=== PATIENT | female | born 1975 | race Asian ===

== ENCOUNTER 2022-04-12 01:28 | Inpatient (IN) | payer BC ==
[2022-04-12] VITALS (7 sets, daily range): BP systolic 108–136
[~2022-04-12] VITALS: Ht 154.9 cm; Wt 61.2 kg
[~2022-04-12 01:28] MED LIST: LOT5 PO; METO-540
--- NOTE | 2022-04-12 01:30 | NUR ---
PER PATIENT, SINCE 43 PATIENT HAS HAD CHEST TIGHTNESS AND SQUEEZING SENSATION THAT RADIATES TO LEFT NECK AND SHOULDER.
--- NOTE | 2022-04-12 01:36 | NUR ---
PATIENT BROUGHT TO BED SIX AND PLACED IN GOWN FOR EVAL. EKG BEING PERFORMED AT THIS TIME.
[2022-04-12] MEDS ORDERED: ASPIRIN 81 MG TAB.CHEW PO ONE (01:45)
--- NOTE | 2022-04-12 01:48 | NUR ---
Dr. Rojas at bedside with patient for evaluation.
--- NOTE | 2022-04-12 01:51 | NUR ---
Lab at bedside for blood draw.
--- NOTE | 2022-04-12 01:56 | NUR ---
X-ray being done at bedside.
[2022-04-12] MEDS ORDERED: NITROGLYCERIN 0.4 MG TAB.SUBL SL ONE (02:00)
[2022-04-12 02:10] LABS: HEMOGLOBIN 14.4 g/dL (12.0-16.0)
[2022-04-12 02:18] LABS: ANION GAP 3 (5-15); CALCIUM 9.3 mg/dL (8.4-11.0); CHLORIDE 97 mmol/L (98-107); CREATININE 0.94 mg/dL (0.55-1.30); GLUCOSE 109 mg/dL (70-99); POTASSIUM 3.2 mmol/L (3.5-5.1); UREA NITROGEN, BLOOD 13 mg/dL (8-21)
[2022-04-12 02:25] LABS: ALANINE AMINOTRANSFERASE 15 U/L (12-78); ALBUMIN 3.7 g/dL (3.4-4.8); ASPARTATE AMINOTRANSFERASE 12 U/L (10-37); TOTAL BILIRUBIN 0.4 mg/dL (0.0-1.0)
[2022-04-12 02:28] LABS: BASOPHILS # (AUTO) 0.1 K/uL (0.0-0.2); BASOPHILS % (AUTO) 0.8 % (0.0-2.0); EOSINOPHILS # (AUTO) 0.2 K/uL (0.0-0.4); EOSINOPHILS % (AUTO) 1.9 % (0.0-4.0); HEMATOCRIT 40.9 % (36-48); LYMPHOCYTES % (AUTO) 19.6 % (20.5-51.5); MEAN CORPUSCULAR HEMOGLOBIN 32 pg (27-31); MEAN CORPUSCULAR HGB CONC 35 % (32-36); MEAN CORPUSCULAR VOLUME 90 fL (79.0-98.0); MONOCYTES # (AUTO) 0.8 K/uL (0.0-1.0); MONOCYTES % (AUTO) 8.1 % (1.7-9.3); NEUTROPHILS % (AUTO) 69.6 % (40.0-70.0); PLATELET COUNT (AUTO) 216 K/uL (130-430); RED BLOOD CELL COUNT(AUTO) 4.53 MIL/uL (4.2-6.2); RED CELL DISTRIBUTION WIDTH 12.8 % (9.0-15.0); WHITE BLOOD COUNT (AUTO) 10.1 K/uL (4.8-10.8)
--- NOTE | 2022-04-12 02:29 | NUR ---
# 18 gauge angiocath placed to RIGHT ANETCUBITAL. Use of asceptic technique. Opsite placed over site. Blood return noted. Flushed with 10 cc of normal saline. No evidence of infiltration noted. Patient tolerated well.
--- NOTE | 2022-04-12 02:30 | NUR ---
PT IS A 46 Y.O. FEMALE, W/ DAUGHTER AT BEDSIDE. AA&OX4.AFEBRILE. NITRO SL ADMINISTERED ORDERED X 3 5 MINS APART. INITIAL CHESTTIGHTNESS PAIN LEVEL=7/10 DOWN TO 4/10 AFTER 3RD DOSE. INSTRUCTED PT TO STAY IN BED & TO NOT GET UP. VSS. LATEST VS: 118/57, 80, 95% ON RA, 20. SAFE & HAZARD FREE ENVIRONMENT PROVIDED.WILL CON'T TO MONITOR.
[2022-04-12 02:35] LABS: GFR AFRICAN AMERICAN 82 mL/min (>90)
[2022-04-12] MEDS ORDERED: ONDANSETRON 4 MG ODT TAB ONE (03:26)
[2022-04-12] MEDS ORDERED: ONDANSETRON 4 MG ODT TAB PO ONE (03:30)
--- NOTE | 2022-04-12 04:29 | NUR ---
COVID SWAB COLLECTED & SENT TO LAB.
[2022-04-12] MEDS ORDERED: IRBE150T48 PO (04:35)
[2022-04-12] MEDS ORDERED: LAMO200T2 PO (04:35)
--- NOTE | 2022-04-12 04:37 | NUR ---
Admit bed requested Patient will be admitted to care of Dr. Mart. Admitted to TELEMETRY unit. Diagnosis CHEST PAIN Inpatient (Yes or No) YES Observation (Yes or No) NO Orientation concerns or request close to nursing station (Yes or No) YES Covid Status PENDING On vent or bipap NO Isolation requirements NO Needs a sitter NO From Home (Yes or if No enter name of facility) YES Requires Dialysis (Yes or No) NO Med Rec Completed (Yes of No) YES
--- NOTE | 2022-04-12 04:42 | NUR ---
ADMITTING ORDERS RECEIVED FR DR. SINCLAIR VIA TELEPHONE NOTED & CARRIED OUT.
--- NOTE | 2022-04-12 04:42 | NUR ---
MED RECON COMPLETED, BELONGINGS LIST COMPLETED.
[2022-04-12] MEDS ORDERED: fentaNYL CITRATE/PF 100 MCG/2 ML AMP IVP ONE (04:45)
--- NOTE | 2022-04-12 05:48 | NUR ---
Patient will be admitted to care of DR. SINCLAIR. Admitted to TELEMETRY unit. Will go to room 117B. Belongings list completed. Complete and up to date summary report printed. SBAR report given to HIRA PÉREZ at bedside with opportunity for questions. PT IS AA&OX4. AFEBRILE. NAD, CHEST PAIN 2/10 TOLERABLE. AMBULATORY W/ STEADY GAIT. IV ON RAC 18G INTACT W/ NO S/S OF INFILTRATION, NO PHLEBITIS.
[2022-04-12] MEDS: MORPHINE 2 MG/ML INJ. SYRINGE IVP PRN ×3 (06:46→15:10)
--- NOTE | 2022-04-12 06:54 | NUR ---
NEW ADMISSION FROM ED, ARRIVED AT 0530,C/O CHEST PAIN THAT RADIATED TO JAW AND COLLAR BONE,MEDICATED ORDERED FOR PAIN.ADMISSION ASSESSMENT COMPLTED, V/S STABLE, BP118/86,HR64,RR16,TEMP 96.7.O2SAT 97%ON RA.PATIENT IS AAO X4. AMBULATES AND GAITE IS STEADY
--- NOTE | 2022-04-12 07:30 | NUR ---
am notes received pt in bed . a/x4. denies any chest pain or sob. res even and unlabored. vitals stable. iv site r ac #18 patent .flushed well. .safety precautions in place. call light within reach. poc discussed with pt. verbalized understanding. will continue to monitor
[2022-04-12] MEDS ORDERED: MORPHINE 2 MG/ML INJ. SYRINGE IVP PRN ×2 (08:30)
[2022-04-12] MEDS ORDERED: ACETAMINOPHEN 325 MG TABLET PO PRN ×2 (08:30→13:30)
[2022-04-12] MEDS ORDERED: NALOXONE HCL 0.4 MG/ML AMP (NARCAN) IVP PRN ×2 (08:30)
[2022-04-12] MEDS ORDERED: MAGNESIUM SULFATE 50 ML IV PRN (08:30)
[2022-04-12] MEDS ORDERED: ONDANSETRON HCL 4 MG/2 ML VIAL IVP PRN (08:30)
[2022-04-12] MEDS ORDERED: ZOLPIDEM TARTRATE 5 MG TABLET PO PRN (08:30)
[2022-04-12] MEDS ORDERED: LORazepam 2 MG/ML VIAL IVP PRN (08:30)
[2022-04-12] MEDS ORDERED: MUPIROCIN 2% TOPICAL OINTMENT 22 GM NS PRN (08:30)
[2022-04-12] MEDS ORDERED: POTASSIUM CHLORIDE 20 MEQ TAB.PRT.SR PO PRN (08:30)
[2022-04-12] MEDS ORDERED: DOCUSATE SODIUM 100 MG CAPSULE PO PRN (08:30)
[2022-04-12] MEDS ORDERED: LamoTRIgine 100 MG TABLET PO SCH (09:00)
[2022-04-12] MEDS ORDERED: LOSARTAN POTASSIUM 50 MG TABLET (COZAAR) PO SCH (09:00)
--- NOTE | 2022-04-12 11:10 | NUR ---
C/O OF CHEST PAIN/TIGHTNESS 02/04. BP 129/80 . HR 77,100% ON RA. PT C/O OF MILD SOB. CALLED DR SLAUGHTER AND NOTIFIED. NEW ORDER RECEIVED FOR XANAX . PER DR SLAUGHTER PT IS CLEARED FROM CARDIAC STANDPOINT.
[2022-04-12] MEDS ORDERED: ALPRAZolam 0.25 MG TABLET PO ONE (11:15)
--- NOTE | 2022-04-12 11:49 | NUR ---
pt stated her chest pain is less 5/10. refused for morphine at this time xanax po 0.25 given as per order. will conitnue to monitor
[2022-04-12 12:32] LABS: BILIRUBIN,URINE NEGATIVE (NEGATIVE); BLOOD, URINE 1+ (NEGATIVE); COLOR,URINE YELLOW (YELLOW); GLUCOSE,URINE NEGATIVE (NEGATIVE); KETONES,URINE NEGATIVE (NEGATIVE); LEUKOCYTE ESTERASE ,URINE NEGATIVE (NEGATIVE); NITRITE, URINE NEGATIVE (NEGATIVE); PH,URINE 7.5 (5.0-8.0); PROTEIN URINE NEGATIVE (NEGATIVE); UROBILINOGEN,URINE 0.2 (0.2-1.0)
[2022-04-12 12:51] LABS: CLARITY/URINE SLIGHTLY HAZY (CLEAR)
[2022-04-12 13:01] LABS: BACTERIA,URINE FEW /HPF (None Seen); WBC,URINE NONE SEEN /HPF (0-3)
[2022-04-12 13:10] LABS: BARBITURATE, URINE NEGATIVE (NEG <=200); BENZODIAZEPINE, URINE NEGATIVE (NEG <=150); CANNABINOID, URINE NEGATIVE (NEG <=50); COCAINE, URINE NEGATIVE (NEG <=150); METHAMPHETAMINES SCREEN,URINE NEGATIVE (NEG <=500); OPIATE, URINE POSITIVE (NEG <=100); PHENCYCLIDINE SCREEN,URINE NEGATIVE (NEG <=25); UR TRICYCLIC ANTIDEPRESSANTS NEGATIVE (NEG <=300); URINE AMPHETAMINE NEGATIVE (NEG <=500); URINE METHADONE NEGATIVE (NEG <=200); URINE OXYCODONE SCREEN NEGATIVE (NEG <=100); URINE PROPOXYPHENE SCREEN NEGATIVE (NEG <=300)
--- NOTE | 2022-04-12 14:15 | NUR ---
rounds checked pt . pt sleeping comfortably. no s/s of pain noted. family member at bed side. sr on tele. will conitnue to monitor
--- NOTE | 2022-04-12 15:35 | NUR ---
pain pt c/o of neck pain 02/04. wanted morphine. pain med morphine given 2 mg ivp as ordered. not in acute distress. will conintue to monitor
--- NOTE | 2022-04-12 16:15 | NUR ---
pt stable resting comfortably. pain better /. at bed side. bp 96/57. hr hr 70. denies any dizziness or orther discomfort. will recheck bp again before discharge
--- NOTE | 2022-04-12 18:30 | NUR ---
D/C Patient Patient given medication reconciliation form and D/C instructions. Exit Care provided. Patient verbalized understanding. MD discussed with patient the results and treatment provided. Ambulatory with steady gait for discharge to home. Patient in stable condition, ID band removed. IV catheter removed, intact and dressing applied, no active bleeding.Patient educated on pain management.pt stable . walked in th room. denies any pain or dizziness or sob. was at bed side. All belongings sent with patient.pt left home with in private car.
== END 2022-04-12 18:35 | disposition home or self-care (01) | DRG 313 ==
LOC: SED 01:28 → STU 04:38
PROVIDERS: ADMIT Family Medicine; ATTEND Family Medicine
DX: R07.89 Other chest pain (principal); E87.1 Hypo-osmolality and hyponatremia; I10 Essential (primary) hypertension; G40.909 Epilepsy, unspecified, not intractable, without status epilepticus; Z20.822 Contact with and (suspected) exposure to COVID-19; E87.6 Hypokalemia; Z79.82 Long term (current) use of aspirin
CPT/HCPCS: 36415; 71045; 80053; 80307; 81000; 84484; 85025; 85379; 93005; 93306; G0378; J2270; J3010; Q0162